=== PATIENT | female | born 1960 | race Caucasian/White ===

== ENCOUNTER → 2019-12-24 | Outpatient (CLI) | payer BC ==
--- NOTE | 2019-12-24 12:26 | Diagnostic Imaging Report ---
INDICATION: Routine screening. COMPARISON is made with prior mammograms 05/14/2018 and 07/25/2016. 2-D and 3-D bilateral screening mammography was performed with CAD. Both breasts are heterogeneously dense, limiting the sensitivity of mammography. Circumscribed nodular densities in both breasts consistent with intraparenchymal lymph nodes are again noted. No spiculated mass or malignant appearing microcalcifications are seen. There are benign calcifications bilaterally. Axillae are unremarkable. IMPRESSION: BI-RADS Category 2 No mammographic features suspicious for malignancy are identified. Dictated by: Dictated on workstation # [id number]
== END ==
LOC: RAD 07:40
PROVIDERS: ATTEND Nurse Practitioner Family
DX: Z12.31 Encounter for screening mammogram for malignant neoplasm of breast (principal)
CPT/HCPCS: 77063; 77067

== ENCOUNTER → 2021-02-02 | Outpatient (CLI) | payer BC ==
--- NOTE | 2021-02-02 11:31 | Diagnostic Imaging Report ---
Indication: Routine screening. Comparison is made with prior mammogram from 12/24/2019 and 05/14/2018. 2-D and 3-D bilateral screening mammography was performed with CAD. Scattered fibroglandular densities are identified bilaterally. Benign nodules in both breasts appears stable. There are benign calcifications bilaterally. No spiculated mass or malignant-appearing microcalcifications are seen. Axillae are unremarkable. IMPRESSION: BI-RADS Category 2 No mammographic features suspicious for malignancy are identified. ACR BI-RADS Category 2: Benign findings. Result letter will be mailed to the patient. Note: At least 10% of breast cancer is not imaged by mammography. Dictated by: Dictated on workstation # [id number]
== END ==
LOC: CARD 08:00
PROVIDERS: ATTEND Nurse Practitioner Family
DX: Z12.31 Encounter for screening mammogram for malignant neoplasm of breast (principal); Z00.01 Encounter for general adult medical examination with abnormal findings; E66.3 Overweight; Z68.26 Body mass index [BMI] 26.0-26.9, adult
CPT/HCPCS: 77063; 77067; 93306

== ENCOUNTER → 2022-05-07 | Outpatient (CLI) | payer BC ==
[~2022-05-07] VITALS: Ht 162 cm; Wt 69.0 kg
[~2022-05-07] MED LIST: CATHETER FLUSH 10 ML SYR IVP PRN
[2022-05-07 09:40] VITALS: BP 157/93
--- NOTE | 2022-05-07 12:12 | Cardiology Stress Test Report ---
Stress Test Report Date of Procedure/Referring: Date of Procedure: May 07, 2022 PCP Tracy Hendrickson DO Admitting Physician Admitting Physician: Attending Physician: Misha Richmond MD Indications: HTN Baseline Heart Rate: 100 Baseline Blood Pressure: Blood Pressure Systolic: 157 Blood Pressure Diastolic: 93 Vital Signs Date Time Temp Pulse Resp B/P (MAP) Pulse Ox O2 Delivery O2 Flow Rate FiO2 05/07/22 09:40 123 20 157/93 (114) 98 Room Air Baseline Vital Signs Vital Signs Date Time Temp Pulse Resp B/P (MAP) Pulse Ox O2 Delivery O2 Flow Rate FiO2 05/07/22 09:40 123 20 157/93 (114) 98 Room Air Baseline EKG: Baseline EKG: NSR Summary: After explaining the procedure and details to the patient, she signed the consent and was brought to the stress nuclear laboratory. Patient exercised on standard Jaime protocol, EKG, heart rate and blood pressure were monitored continuously, resting and stress doses of radio tracer were injected, imaging was acquired and reviewed in the short axis, horizontal long axis and vertical long axis views Patient was able to exercise for a total of 3 minutes on Jaime protocol, METs 4.6 Maximum heart rate 151 Maximum blood pressure 216/106 Stress EKG, Minimal nondiagnostic changes Recovery EKG, Return to baseline TID: 1.09 SSS: 1 SDS: 1 EF: 87 Conclusion: 1. Fair exercise tolerance for a total of 3 minutes on standard Jaime protocol, 4.6 METS achieving 93% of maximum expected heart rate. Return to baseline during recovery 2. Nondiagnostic EKG changes with exercise return to baseline during recovery 3. No significant ischemia or infarction noted on SPECT images 4. Normal left ventricular size, ejection fraction 87% Copy Copies To 1: TRACY HENDRICKSON BASHAR J MD May 07, 2022 12:12
== END ==
LOC: CARD 07:30
PROVIDERS: ATTEND Internal Medicine Cardiovascular Disease
DX: I10 Essential (primary) hypertension (principal); I25.10 Atherosclerotic heart disease of native coronary artery without angina pectoris
CPT/HCPCS: 78452; 93017; A9502